=== PATIENT | female | born 1990 | race Two or more races ===

== ENCOUNTER 2020-06-19 08:14 | Emergency (ER) | payer MEDICAID, OTHER ==
[~2020-06-19] VITALS: Ht 165.1 cm; Wt 68.0 kg
[2020-06-19] MEDS ORDERED: TETRACAINE HCL 0.5% OPTH(EYE) SOLN 4ML EACHEYE ONE (08:30)
[2020-06-19] MEDS ORDERED: FLUORESCEIN SOD 1 MG TEST STRIP OP ONE (08:30)
[2020-06-19 08:46] VITALS: BP 105/71
== END 2020-06-19 08:59 | disposition home or self-care (01) ==
LOC: ER 08:14
DX: S05.02XA Injury of conjunctiva and corneal abrasion without foreign body, left eye, initial encounter (principal); X58.XXXA Exposure to other specified factors, initial encounter; Y93.89 Activity, other specified; Y92.89 Other specified places as the place of occurrence of the external cause; Y99.8 Other external cause status
CPT/HCPCS: 65220

== ENCOUNTER 2020-06-19 18:02 | Emergency (ER) | payer MEDICAID ==
[~2020-06-19] VITALS: Ht 165.1 cm; Wt 68.0 kg
[2020-06-19 18:13] VITALS: BP 111/79
== END 2020-06-19 18:51 | disposition left against medical advice (07) ==
LOC: ER 18:02
DX: H57.12 Ocular pain, left eye (principal); Z53.21 Procedure and treatment not carried out due to patient leaving prior to being seen by health care provider